=== PATIENT | male | born 1945 | race Caucasian/White ===

== ENCOUNTER → 2017-04-29 | Day surgery (SDC) | payer MEDICARE ==
[~2017-04-29] MED LIST: ACET325 PO; ALAW0.02 EACH EYE; ASCO500C PO; BELLADONNA ALKALOIDS/OPIUM 60 MG SUPP RECTAL ONE; CENTCHW3 PO; COMMODE 3:1; DOCU1CAP39 PO; DULO30 PO; FLUT50I NASAL; FOLI400T30 PO; GENTAMICIN SULFATE 80 MG/2 ML VIAL ONE; KLOR20 PO; LACTATED RINGER'S 1000 ML INJ 1,000 ML ONE; LISI5 PO; METO25 PO; MIDAZOLAM HCL 2 MG/2 ML VIAL ONE; MONT10 PO; NAPH EACH EYE; NS 100 ML (PAB BAG) 100 ML IV ONE; OMEG12002 PO; ONDANSETRON HCL 4 MG/2 ML VIAL IV PUSH ONE; PROPOFOL 200 MG/20 ML AMP IV ONE; ROSU40 PO; ST JTAB PO; TAMS.4 PO; VITA20003 PO; WALKER ROLLING; WELL150T PO; WHEELCHAIR RENTAL RA; ceFAZolin INJ 1,000 MG VIAL ONE
--- NOTE | 2017-04-29 11:13 | TN ---
cc: WILLY BILL M.D. DATE OF SURGERY: 04/29/2017 PREOPERATIVE DIAGNOSIS 1. Benign prostatic hyperplasia with lower urinary tract symptoms (ICD - 10 code N40.1) 2. Chronic urinary retention (ICD - 10 code R33.8) INDICATION Mr. Jeffrey is a 72-year-old gentleman who has failed maximum pharmacologic intervention for his lower urinary tract symptoms and chronic urinary retention who presents now for definitive treatment. FINDINGS: A normal urethra with mild stricture. 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 The ureteral orifice normal size, shape and position effluxing clear urine. There is moderate trabeculation but no diverticula of the bladder. No stones within the bladder or tumors or suspicious mucosa. PROCEDURE IN DETAIL: Procedure as well as the risks and benefits were explained to the patient. Informed consent was obtained the patient was taken major operative theater where he was placed in supine position. The patient was identified as well as the operative site. Cool time-out was performed in standard fashion. At this time general anesthetic and prophylactic intravenous antibiotics consisting of gentamicin 80 mg and Ancef 1 gram was administered after adequate anesthetic he was placed in low dorsal lithotomy position, prepped and draped usual sterile fashion. At this time a 22.5 Czech cystoscope with a 30 lens was inserted urethra and bladder and the entire bladder was systematically surveyed. The bladder and prostate was systematically surveyed with the above findings. At this time a decision was made to perform transurethral resection of the prostate using the bipolar gyrus system and normal saline. At this time a 27 Czech Florian resectoscope with a right-angle bladder loop was placed under direct vision into the bladder and attention was directed to the median lobe where transurethral resection of the median lobe was performed. This was a quite large mass in vascular median lobe. After the median lobe was resected the bladder neck was then resected circumferentially and then the lateral lobes resected and the standard fashion and elective Ellik evacuator was used to evacuate the prostate chips which was sent for pathological evaluation. Care was taken not to resect distal to the proximal verumontanum which was kept in the vision at all times. After an adequate channel was opened and hemostasis was confirmed and all the chips had evacuated. Care was taken to inspect the bladder there was no incidental damage to the bladder or the urethral sphincter. At this time the resectoscope was removed and a 24-Czech three-way hematuria catheter was placed without difficulty into the bladder and placed to straight drain. The irrigation port was capped and 60 cc of sterile water was insufflated into the balloon, due to the large amount of resection of prostate tissue. At this time there was clear urine effluxing and a belladonna and opioid suppository was placed per rectum. The patient then was placed back in supine position, emerged from anesthetic without difficulty and transferred to recovery in stable condition to be discharged home when criteria is met. There are no obvious complications. MD OMEGA Montanez/burt /10:53 AM /11:01 AM
== END | disposition home or self-care (01) ==
LOC: ESDC 06:26
PROVIDERS: ATTEND Urology
DX: N40.1 Benign prostatic hyperplasia with lower urinary tract symptoms (principal); R33.8 Other retention of urine
CPT/HCPCS: 00914; 52601; 88305; J0690; J1580; J2250; J2405; J3010; J7120